=== PATIENT | male | born 1960 | race Caucasian/White ===

== ENCOUNTER 2020-12-08 15:20 | Emergency (ER) | payer OTHER ==
[~2020-12-08] VITALS: Ht 167.6 cm; Wt 78.9 kg
[2020-12-08 15:26] VITALS: BP 166/106
--- NOTE | 2020-12-08 15:35 | NUR ---
lab bedside with patient
--- NOTE | 2020-12-08 15:46 | NUR ---
60 Y/O M BIBA FROM [facility] REPORTS PT HAD SEIZURE DURING DIALYSIS, WITNESSED 30-35 SECONDS. PT DOES NOT RECALL FROM [facility]ORY INCIDIENT. PT IS NOW G[employer] 15, A&OX4 TO NAME, , REASON AND YEAR. PT BILATERALY [employer] STRENGTH EQUAL AND R EYE PERRL INTACT. PT STATED "SINCE LAST SUNDAY HE WILL EXPERINCE TREMOR LIKE ACTIVITY/SHAKES." BREATH SOUDNS CLEAR, SKIN INTACT AND DRY. PORT NOTED ON R UPPER CHEST. 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
--- NOTE | 2020-12-08 15:47 | NUR ---
PT ACTIVELY EXPERINCING TREMOR LIKE ACTIVITY. ER MD BEDSIDE. PT STATED THIS IS NORMAL FOR HIM
--- NOTE | 2020-12-08 15:47 | NUR ---
DR. MUNGUIA BEDSIDE EVALUATING PT
[2020-12-08 15:50] LABS: BASOPHILS % (AUTO) 0.5 % (0.0-2.0); EOSINOPHILS # (AUTO) 0.1 K/uL (0-0.4); EOSINOPHILS % (AUTO) 0.9 % (0.0-4.0); HEMOGLOBIN 12.4 g/dL (12.0-18.0); LYMPHOCYTES # (AUTO) 1.9 K/uL (2.0-11.5); LYMPHOCYTES % (AUTO) 26.2 % (20.5-51.1); MEAN CORPUSCULAR HEMOGLOBIN 33 pg (27-31); MEAN CORPUSCULAR HGB CONC 34 g/dL (33-37); MEAN CORPUSCULAR VOLUME 98.1 fL (80-94); MONOCYTES # (AUTO) 0.7 K/uL (0.8-1.0); MONOCYTES % (AUTO) 9.2 % (1.7-9.3); NEUTROPHILS # (AUTO) 4.6 K/uL (1.8-7.7); NEUTROPHILS % (AUTO) 63.2 % (42.2-75.2); PLATELET COUNT (AUTO) 228 K/uL (140-450); RED BLOOD CELL COUNT(AUTO) 3.77 MIL/uL (4.20-6.10); RED CELL DISTRIBUTION WIDTH 14.1 % (11.6-13.7); WHITE BLOOD COUNT (AUTO) 7.2 K/uL (4.8-10.8)
[2020-12-08 15:55] LABS: ANION GAP 14.3 (8-16); CARBON DIOXIDE 31.9 mmol/L (21-32); CREATININE 2.7 mg/dL (0.6-1.3); POTASSIUM 3.2 mmol/L (3.5-5.1)
--- NOTE | 2020-12-08 16:02 | NUR ---
PT PROVIDED WITH WARM BLANKET
[2020-12-08 16:29] VITALS: BP 166/106
--- NOTE | 2020-12-08 16:30 | NUR ---
Patient discharged with v/s stable. Written and verbal after care instructions given and explained. Patient verbalized understanding. Ambulatory with steady gait. All questions addressed prior to discharge. Advised to follow up with PMD. patient provided with taxi voucher
== END 2020-12-08 16:30 | disposition home or self-care (01) ==
LOC: MED 15:20
DX: R56.9 Unspecified convulsions (principal); I12.0 Hypertensive chronic kidney disease with stage 5 chronic kidney disease or end stage renal disease; N18.6 End stage renal disease; Z99.2 Dependence on renal dialysis
CPT/HCPCS: 36415; 80048; 85025; 99283

== ENCOUNTER 2021-03-11 15:49 | Emergency (ER) | payer OTHER ==
[~2021-03-11] VITALS: Ht 162.6 cm; Wt 72.6 kg
--- NOTE | 2021-03-11 15:58 | NUR ---
Pt trans to room 04 at this time.
[2021-03-11 16:00] VITALS: BP 159/96
--- NOTE | 2021-03-11 16:00 | NUR ---
60 Y/O Male BIBA for tonic clonic seizure x 60 seconds. Pt reported that he fell after standing up and struck his face. Laceration noted to Right eyebrow area. No s/sx of active bleeding at this time. Pt stated that he did not lose consciousness at this time. AOX4, able to make needs known. Left eye blindness. PmHx: Seizure, ESRD on H/D, Left eye blindness. HTN Allergies: Denies Home meds: see list
--- NOTE | 2021-03-11 16:35 | NUR ---
Dr Alfred at bedside to assess pt at this time.
--- NOTE | 2021-03-11 16:45 | NUR ---
Pt taken to radiology for CT.
--- NOTE | 2021-03-11 17:05 | NUR ---
Pt returned from CT at this time.
[2021-03-11 17:48] LABS: BASOPHILS % (AUTO) 0.4 % (0.0-2.0); EOSINOPHILS # (AUTO) 0.1 K/uL (0-0.4); EOSINOPHILS % (AUTO) 1.3 % (0.0-4.0); HEMATOCRIT 35.3 % (36-52); HEMOGLOBIN 12.1 g/dL (12.0-18.0); LYMPHOCYTES # (AUTO) 1.1 K/uL (2.0-11.5); LYMPHOCYTES % (AUTO) 23.6 % (20.5-51.1); MEAN CORPUSCULAR HEMOGLOBIN 33 pg (27-31); MEAN CORPUSCULAR HGB CONC 34 g/dL (33-37); MEAN CORPUSCULAR VOLUME 96.4 fL (80-94); MONOCYTES # (AUTO) 0.5 K/uL (0.8-1.0); NEUTROPHILS # (AUTO) 2.9 K/uL (1.8-7.7); NEUTROPHILS % (AUTO) 63.7 % (42.2-75.2); PLATELET COUNT (AUTO) 207 K/uL (140-450); RED BLOOD CELL COUNT(AUTO) 3.66 MIL/uL (4.20-6.10); RED CELL DISTRIBUTION WIDTH 13.2 % (11.6-13.7); WHITE BLOOD COUNT (AUTO) 4.6 K/uL (4.8-10.8)
[2021-03-11 18:33] LABS: ALBUMIN 3.7 g/dL (3.4-5.0); ANION GAP 12.9 (8-16); CARBON DIOXIDE 34.3 mmol/L (21-32); CREATININE 3.3 mg/dL (0.6-1.3); POTASSIUM 4.2 mmol/L (3.5-5.1); TOTAL BILIRUBIN 0.2 mg/dL (0.0-1.0)
--- NOTE | 2021-03-11 18:36 | NUR ---
Transport is set for 9pm at this time.
--- NOTE | 2021-03-11 19:33 | NUR ---
Pt report given to Gene WYATT. Transfer of care at this time.
[2021-03-11 20:23] VITALS: BP 132/72
--- NOTE | 2021-03-11 20:29 | NUR ---
PATIENT DC HOME STABLE NOT COMPLAINING OF PAIN VITALS SIGNS IN NORMAL LIMITS WE RECOMMEND TO FOLLOW UP [facility] ALSO TO COMING BACK TO ER IF THE SYMPTOMS GET WORSE OR NOT IMPROVING ALL DC INSTRUCTION GAVE WRITING TO THE PATIENT //Lenard WYATT
== END 2021-03-11 20:29 | disposition home or self-care (01) ==
LOC: MED 15:49
DX: R56.9 Unspecified convulsions (principal); I12.0 Hypertensive chronic kidney disease with stage 5 chronic kidney disease or end stage renal disease; N18.6 End stage renal disease
CPT/HCPCS: 36415; 70450; 80053; 85025; 99284

== ENCOUNTER 2021-07-13 16:26 | Emergency (ER) | payer OTHER ==
[~2021-07-13] VITALS: Ht 167.6 cm; Wt 75.7 kg
[2021-07-13 16:26] VITALS: BP 160/82
--- NOTE | 2021-07-13 16:32 | NUR ---
PT IRWIN VIA GURNEY TO BED 10.
--- NOTE | 2021-07-13 16:40 | NUR ---
PT AMBULATED TO RESTROOM WITH STEADY GAIT.
--- NOTE | 2021-07-13 16:46 | NUR ---
Patient being evaluated by Dr. Donovan at bedside.
[2021-07-13] MEDS ORDERED: XALOS OP (16:51)
[2021-07-13] MEDS ORDERED: ROC.25 PO (16:51)
[2021-07-13] MEDS ORDERED: AMLO10TA PO (16:51)
[2021-07-13] MEDS ORDERED: HYDR-1098 PO (16:51)
[2021-07-13] MEDS ORDERED: VITA-16 PO (16:51)
[2021-07-13] MEDS ORDERED: SODI650T2 PO (16:51)
[2021-07-13] MEDS ORDERED: PRIM250T70 PO (16:51)
[2021-07-13] MEDS ORDERED: [UNRECOGNIZED DRUG - CODE] PO (16:51)
[2021-07-13] MEDS ORDERED: ESLI800T PO (16:51)
[2021-07-13 17:11] LABS: BASOPHILS % (AUTO) 0.4 % (0.0-2.0); EOSINOPHILS # (AUTO) 0.1 K/uL (0-0.4); EOSINOPHILS % (AUTO) 1.4 % (0.0-4.0); HEMATOCRIT 35.7 % (36-52); LYMPHOCYTES # (AUTO) 1.1 K/uL (2.0-11.5); LYMPHOCYTES % (AUTO) 28.1 % (20.5-51.1); MEAN CORPUSCULAR HEMOGLOBIN 33 pg (27-31); MEAN CORPUSCULAR HGB CONC 34 g/dL (33-37); MEAN CORPUSCULAR VOLUME 99.1 fL (80-94); MONOCYTES # (AUTO) 0.5 K/uL (0.8-1.0); MONOCYTES % (AUTO) 11.3 % (1.7-9.3); NEUTROPHILS # (AUTO) 2.4 K/uL (1.8-7.7); NEUTROPHILS % (AUTO) 58.8 % (42.2-75.2); PLATELET COUNT (AUTO) 217 K/uL (140-450); RED BLOOD CELL COUNT(AUTO) 3.61 MIL/uL (4.20-6.10); RED CELL DISTRIBUTION WIDTH 14.1 % (11.6-13.7)
--- NOTE | 2021-07-13 17:27 | NUR ---
PT ATTEMPTING TO GET OUT OF BED AND LEAVE. PT WAS REDIRECTED. DR OLIVAS MADE AWARE
--- NOTE | 2021-07-13 17:51 | NUR ---
PT MOVED TO CHAIR C PER DR OLIVAS.
[2021-07-13 18:00] LABS: ANION GAP 11.2 (8-16); CARBON DIOXIDE 32.8 mmol/L (21-32); CREATININE 3.3 mg/dL (0.6-1.3); TOTAL BILIRUBIN 0.4 mg/dL (0.0-1.0)
--- NOTE | 2021-07-13 18:40 | NUR ---
PT REFUSING CT SCAN, STATING HE JUST WANTS TO LEAVE. DR OLIVAS MADE AWARE AND EXPLAINED. PT FULLY ALERT AND ORIENTED.
--- NOTE | 2021-07-13 18:44 | NUR ---
Patient discharged with v/s stable. Written and verbal after care instructions ABOUT SEIZURE given and explained. Patient verbalized understanding. Ambulatory with steady gait. All questions addressed prior to discharge. Advised to follow up with PMD.
== END 2021-07-13 18:44 | disposition home or self-care (01) ==
LOC: MED 16:26
DX: R56.9 Unspecified convulsions (principal); I12.0 Hypertensive chronic kidney disease with stage 5 chronic kidney disease or end stage renal disease; N18.6 End stage renal disease; Z99.2 Dependence on renal dialysis
CPT/HCPCS: 36415; 80053; 85025; 93005; 99284